=== PATIENT | male | born 1950 | race Caucasian/White ===

== ENCOUNTER 2018-02-26 08:38 | Outpatient (CLI) | payer MEDICARE, OTHER ==
--- NOTE | 2018-02-26 16:47 | Diagnostic Imaging Report ---
QUINCY OSCAR [facility] [id number] [facility] [address] [place] [address]. [id number] Report Submission Date: Feb 26, 2018 9:14:10 AM CDT Patient Study Name: BERNADETTE BARRIOS Date: Feb 26, 2018 8:48:49 AM CDT Modality Type: DX Gender: M Description: SPINE : 50 Institution: [facility] Physician: QUINCY OSCAR Examination: Plain film lumbar spine History: L-SPINE, LOW BACK PAIN AND BILATERAL LEG CRAMPS FOR SEVERAL YEARS. WORSENING, NO KNOWN INJURY (Hx) Findings: 3 views of the lumbar spine demonstrate normal height. No anterior compression. Scattered osteophytes. Minimal L4/L5 listhesis. Facet degenerative changes. Atherosclerotic disease involving the abdominal aorta and iliac arteries. Right hip prosthesis. Renal region calcifications. Impression: Degenerative changes. No compression deformity. If patient is experiencing neurologic symptoms, consider obtaining MRI to further evaluate. Electronically signed on Feb 26, 2018 9:14:10 AM CDT by: Barber URBINA
== END 2018-02-26 08:40 ==
LOC: RAD 08:38
PROVIDERS: ATTEND Internal Medicine
DX: R25.2 Cramp and spasm (principal)
CPT/HCPCS: 72100